=== PATIENT | female | born 1960 | race Caucasian/White ===

== ENCOUNTER 2024-10-19 14:32 | Outpatient (CLI) | payer MEDICARE, SELFPAY ==
[2024-10-19 15:25] LABS: Albumin Level 4.4 g/dl (3.5-5.0); Chloride 103 mmol/L (98-107); Sodium 138 mmol/L (136-145)
[2024-10-19 15:26] LABS: Potassium 4.6 mmoL/L (3.5-5.1)
[2024-10-19 15:28] LABS: Alanine Aminotransferase 69 U/L (12-78); Albumin/Globulin Ratio 1.3 (1.1-1.8); Alkaline Phosphatase 75 U/L (38-126); Anion Gap 15.6 mEq/L (5-15); Aspartate Amino Transferase 88 U/L (14-36); Bilirubin,Total 0.9 mg/dl (0.2-1.3); Blood Urea Nitrogen 14 mg/dl (7-17); Carbon Dioxide 24 mmol/L (22.0-30.0); Estimated Glomerular Filt Rate 55 ml/min (>60); GFR (African American) 67 ML/MIN (>60); Globulin 3.4 g/dL (1.3-3.2); Iron 76 ug/dL (37-170); Total Protein,Serum 7.8 g/dl (6.3-8.2)
[2024-10-19 15:29] LABS: Calcium 9.6 mg/dl (8.4-10.2); Glucose 88 mg/dl (74-100)
[2024-10-19 15:40] LABS: Total Iron Binding Capacity 317 ug/dL (265-497)
[2024-10-19 16:24] LABS: Ferritin 188 ng/ml (11.1-264)
[2024-10-20 08:14] LABS: Ceruloplasmin 23.8 mg/dL (19.0-39.0); Immunoglobulin A, Qn 478 mg/dL (87-352); Immunoglobulin G, Qn 2215 mg/dL (586-1602); Immunoglobulin M, Qn 96 mg/dL (26-217)
[2024-10-20 14:20] LABS: Angiotensin Converting Enzyme 49 U/L (14-82)
[2024-10-20 15:09] LABS: Actin (Smooth Muscle) Antibody 8 Units (0-19)
[2024-10-20 17:37] LABS: Deamidated Gliadin Abs, IgA 5 units (0-19); Deamidated Gliadin Abs, IgG 2 units (0-19); Endomysial IgA Antibody Negative (Negative); Tissue Transglutaminase IgA Ab <2 U/mL (0-3); Tissue Transglutaminase IgG Ab 3 U/mL (0-5)
[2024-10-23 10:13] LABS: Reticulin IgA Antibody Negative titer (Neg:<1:2.5)
[2024-11-03 00:09] LABS: Alpha-1-Antitrypsin 154 mg/dL (101-187)
== END 2024-10-19 23:59 | disposition home or self-care (01) ==
LOC: LAB 14:34
PROVIDERS: Visit Provider Nurse Practitioner Family
DX: R79.89 Other specified abnormal findings of blood chemistry (principal); K75.81 Nonalcoholic steatohepatitis (NASH); R74.01 Elevation of levels of liver transaminase levels
CPT/HCPCS: 36415; 80053; 81256; 82103; 82104; 82164; 82390; 82728; 82784; 83516; 83540; 83550; 86255; 86256

== ENCOUNTER 2025-01-19 13:59 | Outpatient (CLI) | payer MEDICARE, SELFPAY ==
[2025-01-19 15:08] LABS: Alanine Aminotransferase 26 U/L (12-78); Albumin Level 4.3 g/dl (3.5-5.0); Albumin/Globulin Ratio 1.2 (1.1-1.8); Alkaline Phosphatase 81 U/L (38-126); Anion Gap 8.4 mEq/L (5-15); Aspartate Amino Transferase 47 U/L (14-36); Bilirubin,Total 0.8 mg/dl (0.2-1.3); Blood Urea Nitrogen 14 mg/dl (7-17); Calcium 9.7 mg/dl (8.4-10.2); Carbon Dioxide 27 mmol/L (22.0-30.0); Chloride 110 mmol/L (98-107); Estimated Glomerular Filt Rate 63 ml/min (>60); GFR (African American) 76 ML/MIN (>60); Globulin 3.5 g/dL (1.3-3.2); Glucose 88 mg/dl (74-100); Potassium 4.4 mmoL/L (3.5-5.1); Sodium 141 mmol/L (136-145); Total Protein,Serum 7.8 g/dl (6.3-8.2)
[2025-01-22 03:36] LABS: ALT (SGPT) P5P 25 IU/L (0-40); AST (SGOT) P5P 48 IU/L (0-40); Alpha 2-Macroglobulins, Qn 322 mg/dL (110-276); Apolipoprotein A-1 158 mg/dL (116-209); Bilirubin, Total 0.5 mg/dL (0.0-1.2); Cholesterol, Total 102 mg/dL (100-199); Fibrosis Score 0.44 (0.00-0.21); Fibrosis Stage F1-F2 (.); GGT 29 IU/L (0-60); Glucose 86 mg/dL (70-99); Haptoglobin 117 mg/dL (37-355); Steatosis Score 0.28 (0.00-0.40); Triglycerides 117 mg/dL (0-149)
== END 2025-01-19 23:59 | disposition home or self-care (01) ==
LOC: LAB 14:00
PROVIDERS: Visit Provider Nurse Practitioner Family
DX: K75.81 Nonalcoholic steatohepatitis (NASH) (principal); R79.89 Other specified abnormal findings of blood chemistry; E78.5 Hyperlipidemia, unspecified
CPT/HCPCS: 36415; 80053; 82172; 82247; 82465; 82947; 82977; 83010; 83883; 84450; 84460; 84478

== ENCOUNTER 2025-08-01 10:20 | Outpatient (CLI) | payer MEDICARE, OTHER, SELFPAY ==
--- NOTE | 2025-08-01 10:15 | US_ITS ---
FINAL REPORT CLINICAL HISTORY: History of Martinez COMPARISON: None FINDINGS: Sonographic images of the right upper quadrant were obtained. The pancreas is partially obscured. There is slight coarsening of the echotexture of the liver, that may be secondary to mild changes of fibrosis. The gallbladder has been surgically resected. There is no evidence of biliary ductal dilatation.The common duct measures 4mm. Limited images of the right kidney are unremarkable. IMPRESSION: Prior cholecystectomy without biliary ductal dilatation. Slight coarsening of the echotexture of the liver that may be secondary to fibrosis. Reviewed, Interpreted and Dictated by Chuy Vidales MD Transcribed by Alison Sanchez Authenticated and [facility]
== END 2025-08-01 23:59 | disposition home or self-care (01) ==
LOC: RAD 10:22
PROVIDERS: PCP Nurse Practitioner Family; Visit Provider Nurse Practitioner Family
DX: K75.81 Nonalcoholic steatohepatitis (NASH) (principal); R93.2 Abnormal findings on diagnostic imaging of liver and biliary tract; Z90.49 Acquired absence of other specified parts of digestive tract
CPT/HCPCS: 76705